=== PATIENT | male | born 2000 | race Caucasian/White ===

== ENCOUNTER 2020-04-27 15:08 | Emergency (ER) | payer BC, SELFPAY ==
[2020-04-27 15:09] VITALS: BP 124/68; PULSE 114; RESP 16; TEMP 36.4; O2SAT 98; BMI 23.1
--- NOTE | 2020-04-27 15:35 | EKG12_ITS ---
Test Reason : PALPITATIONS Blood Pressure : / mmHG Vent. Rate : 087 BPM Atrial Rate : 087 BPM P-R Int : 140 ms QRS Dur : 096 ms QT Int : 354 ms P-R-T Axes : 077 082 053 degrees QTc Int : 425 ms Normal sinus rhythm with sinus arrhythmia Normal ECG Confirmed by LEWIS CROWLEY, ANEL ([id number]), sound editor CHRIS MEDRANO ([id number]) on 05/04/2020 8:39:51 A M Referred By: DOUGLAS Confirmed By:MARIA ESTHER SAUCEDO MD
[2020-04-27 15:41] VITALS: O2SAT 98
[2020-04-27] MEDS: Aspirin 81 MG TAB.CHEW 324 MG PO (15:48)
--- NOTE | 2020-04-27 15:50 | ED.VIS.GEN ---
History of Present Illness Chief Complaint: Palpitations Informant: Patient Narrative: 19-year-old male with no medical problems presenting with tightness in his chest as well as the sensation of palpitations. He states that he just started on Adderall and he has been taking it for 5 days. He has had some of the symptoms earlier this week but it was much milder today he was having a lot more tightness. Today he took his medication at about 1030 and about 1130 he started to feel the symptoms. He states is trying to do homework and his eyes got a little blurry for a second. Does not have a headache. He currently is not short of breath. He does not have a fever or cough. He states he has no DVT/PE risk factors or history. He has no cardiac or pulmonary history. He states he is otherwise physically healthy. Past Medical History - Allergies and Home Meds Allergies/Adverse Reactions: Allergies No Known Allergies Allergy (Verified 04/27/20 15:11) Primary Care Physician: Yariel Arceo MD [Primary Care Provider] - Prior records reviewed: Yes Past Medical History: - - ADHD Surgical History: no surgical history Lives: Alone Smoking Status: Never smoker Alcohol: None Drugs: None Review of Systems General: Denies: Chills, Fever, Sweats Eyes: Reports: Blurred vision - left, Blurred vision - right ENT: Denies: Rhinorrhea, Sore throat Cardiovascular: Reports: Chest pain Respiratory: Denies: Dyspnea, Cough, Dyspnea on exertion Gastrointestinal: Denies: Abdominal pain, Nausea, Vomiting, Diarrhea, Melena, Hematochezia Genitourinary: Denies: Dysuria, Hematuria, Frequency Musculoskeletal: Denies: Back pain, Extremity Pain Skin: Denies: Rash, Wounds Neurological: Denies: Headache, Weakness, Numbness Physical Exam Vital Signs/Narrative: Vital Signs Temp Pulse Resp BP Pulse Ox 04/27/20 15:41 98 04/27/20 15:09 97.5 F L 114 H 16 124/68 H 98 Inital Vital Signs reviewed: Yes General: Well nourished, Well developed, No Acute Distress Head: Normocephalic, Atraumatic Eyes: Perrl, EOMI ENT: Moist mucous membranes, Nasal congestion Cardiovascular: Regular rate, Regular rhythm Abdomen: Soft, Nontender Back: Nontender, Normal Inspection Extremities: Nontender, No edema Skin: Normal color, No rash Neurological: Alert, Oriented x3 Psychological: Normal affect, Normal Mood Diagnostic/Tx/Re-eval - Rhythm Strip Rhythm Strip: Sinus Rhythm Rate: 87 - EKG Initial EKG Interpretation: Sinus Rhythm, No Acute Injury Pattern - Medical Decision Making Clinical Impression(s) from Imaging Studies Chest X-Ray 04/27/20 16:00 IMPRESSION: Normal x-ray examination of the chest. Electronically Signed: Dangelo Dickey DO at 16:11 EDT Tel [phone], Service support , Laboratory Data 04/27/20 04/27/20 04/27/20 15:50 15:50 15:50 WBC 8.4 RBC 5.52 Hgb 15.9 Hct 48.1 MCV 87.1 MCH 28.8 MCHC 33.1 RDW Std Deviation 38.8 RDW Coeff of Noa 12.0 Plt Count 224 MPV 10.7 Immature Gran % (Auto) 0.200 Neut % (Auto) 75.8 H Lymph % (Auto) 15.3 L [place] % (Auto) 8.1 Eos % (Auto) 0.4 Baso % (Auto) 0.2 Absolute Neuts (auto) 6.4 Absolute Lymphs (auto) 1.28 Nucleated RBC % 0 D-Dimer Quant (PE/DVT) < 0.27 L Sodium 138 Potassium 4.3 Chloride 106 Carbon Dioxide 30.0 Anion Gap 2 L BUN 17 Creatinine 1.05 Estim Creat Clear Calc 143.81 Est GFR (MDRD) Af Amer 115 Est GFR (MDRD) Non-Af 95 BUN/Creatinine Ratio 16.2 Glucose 116 H Calcium 9.5 Troponin I < 0.015 Patient was seen and evaluated on arrival for chest pain which he started to have after he took his medication today. He has just been using Adderall this week. He states he has had this to some degree every day but this was the worst day of it. On arrival he is slightly tachycardic but normotensive. He is not hypoxic. He is not had any signs of illness. He states that prior to taking the medication he felt well. He does not have any cardiac history or pulmonary history. I did check blood work and his labs are normal. Troponin negative. D-dimer is negative. I think given that the patient is a young healthy 19-year-old male with most likely a side effect to medication he does not need a repeat troponin and EKG. I will send him home to follow-up with his PCP. He is given return precautions. Impression: 1. Atypical chest pain plan 2. medication side effect ED Disposition - Plan for ED Patient: Instructions: ED Chest Pain Atypical Unkn Cause Referrals: Yariel Arceo MD [Primary Care Provider] -
--- NOTE | 2020-04-27 16:00 | RAD_ITS ---
STUDY: X-RAY CHEST REASON FOR EXAM: Male, 19 years old. COMPLAINS OF CHEST TIGHTNESS, DRY MOUTH, VISION CHANGES AFTER TAKING ADHD MED. STARTED MED ONE WEEK AGO. TECHNIQUE: Frontal view COMPARISON: None. FINDINGS: The lungs are clear and expanded. There is no demonstrated pleural abnormality. Normal size heart. Normal mediastinum and leandro. Normal visualized pulmonary arteries. Normal visualized aortic arch and descending thoracic aorta. Normal visualized thoracic spine. Normal visualized ribs, clavicles, and shoulders. There is no demonstrated abnormality of the visualized soft tissue structures of the upper abdomen. RAD/Chest 1 View (Portable) IMPRESSION: Normal x-ray examination of the chest. Electronically Signed: Dangelo Dickey DO at 16:11 EDT Tel [phone], Service support ,
[2020-04-27 16:06] LABS: Absolute Lymphocyte Count 1.28 X10^3/uL (0.83-4.51); Absolute Neutrophil Count 6.4 X10^3/uL (2.0-7.7); Basophil# 0.02 X10^3/uL; Basophil% 0.2 % (0-1); Eosinophil# 0.03 X10^3/uL; Eosinophils% 0.4 % (0-5); Hematocrit 48.1 % (40-54); Hemoglobin 15.9 g/dL (13.0-16.5); Lymphocyte # 1.28 X10^3/ul (4.0); Lymphocyte % 15.3 % (19-41); Mean Corp Hgb Conc 33.1 g/dL (32-36); Mean Corpuscular Hgb 28.8 pg (27.0-32.0); Mean Corpuscular Volume 87.1 fL (80-94); Mean Platelet Vol. 10.7 fl (6.2-12.0); Monocyte# 0.68 X10^3/uL; Monocyte% 8.1 % (0-10); NRBC Flagged by Analyzer 0 % (0-5); Neutrophil # 6.35 X10^3/uL (2.7-7.7); Neutrophil % 75.8 % (47-70); Platelet Count 224 K/mm3 (150-450); RBC Distribution Width SD 38.8 fl (35.1-43.9); Red Blood Count 5.52 M/mm3 (4.6-6.2); White Blood Count 8.4 K/mm3 (4.4-11.0)
[2020-04-27 16:17] VITALS: BP 118/60; PULSE 87; RESP 17; O2SAT 100
[2020-04-27 16:40] LABS: D-Dimer Quantitative (DVT/PE) < 0.27 FEU/ug/m (0.27-0.49)
[2020-04-27 16:45] LABS: Anion Gap 2 (5-15); BUN 17 mg/dL (7-18); BUN/Creat Ratio 16.2 RATIO (10-20); Calcium,Total 9.5 mg/dL (8.5-10.1); Chloride 106 mmol/L (98-107); Creatinine, Serum 1.05 mg/dL (0.70-1.30); EST Glomerular Filtration Rate 95 mL/min (>60); Est Glom Filt Rate - Afr Amer 115 mL/min (>60); Estimated Creatinine Clearance 143.81 ml/min; Glucose 116 mg/dL (74-106); Potassium 4.3 mmol/L (3.5-5.1); Sodium Level 138 mmol/L (136-145)
[2020-04-27 17:05] VITALS: BP 124/77; PULSE 86; RESP 16; O2SAT 99
== END 2020-04-27 17:06 | disposition home or self-care (01) ==
LOC: ED 15:46
PROVIDERS: Emergency Provider Student in an Organized Health Care Education/Training Program; PCP Pediatrics
DX: R07.89 Other chest pain (principal); F90.9 Attention-deficit hyperactivity disorder, unspecified type
CPT/HCPCS: 71045; 80048; 84484; 85025; 85379; 93005; 99281; 99285; A4216

== ENCOUNTER → 2021-06-21 07:59 | Outpatient (CLI) | payer BC, SELFPAY | PROVIDERS: PCP Pediatrics; Visit Provider Family Medicine | DX: Z23 Encounter for immunization (principal) ==